=== PATIENT | male | born 1980 | race Caucasian/White ===

== ENCOUNTER 2021-11-04 21:16 | Emergency (ER) | payer OTHER ==
[~2021-11-04] VITALS: Ht 182.9 cm; Wt 115.6 kg
[2021-11-04 21:29] VITALS: BP 139/86
[2021-11-04] MEDS ORDERED: diphenhydrAMINE HCL 25 MG CAPSULE PO ONE (21:45)
[2021-11-04] MEDS ORDERED: ACETAMINOPHEN 500 MG TABLET PO ONE (21:45)
[2021-11-04] MEDS ORDERED: IBUPROFEN 600 MG TABLET. PO ONE (21:45)
--- NOTE | 2021-11-04 21:50 | PHYS DOC ---
Past History Additional Past Medical Histor: ruptured discs Past Surgical History: Other Additional Past Surgical Histo: lasix Alcohol Use: None Adult General Chief Complaint Chief Complaint: MULTIPLE COMPLAINTS HPI HPI Patient is an otherwise healthy 41-year-old male who presents with a chief complaint of about 1 day of chills, body aches, fever at home of 100.4, nasal congestion and intermittent cough. States he took some DayQuil earlier this morning but that it. Denies any known ill contacts. Denies recent traumas, travels, rash. States he is eating and drinking normally for him. States he is making urine and stool normally for him with no blood in either. Review of Systems Review of Systems Review of systems otherwise unremarkable except noted in HPI Allergies Allergies Allergies Coded Allergies Type Severity Reaction Last Updated Verified Sulfa (Sulfonamide Antibiotics) Allergy Unknown 11/04/21 Yes Physical Exam Physical Exam Constitutional: Well developed, well nourished, no acute distress, non-toxic appearance. [] HENT: Normocephalic, atraumatic, bilateral external ears normal, tympanic membranes normal, oropharynx moist, no posterior oropharyngeal erythema, no oral exudates, nose normal. [] Eyes: conjunctiva normal, no discharge. [] Neck: Normal range of motion, no tenderness, supple, no stridor. [] Cardiovascular:Heart rate regular rhythm, no murmur [] Lungs & Thorax: Bilateral breath sounds clear to auscultation [] Skin: Warm, dry, no erythema, no rash. [] Extremities: No tenderness, no cyanosis, no clubbing, ROM intact, no edema. [] Neurologic: Alert and oriented X 3, normal motor function, normal sensory function, no focal deficits noted. [] Psychologic: Affect normal, judgement normal, mood normal. [] Current Patient Data Vital Signs Vital Signs Date Time Temp Pulse Resp B/P (MAP) Pulse Ox O2 Delivery O2 Flow Rate FiO2 11/04/21 21:29 98.7 95 18 139/86 (103) 96 Room Air EKG EKG [] Radiology/Procedures Radiology/Procedures [] Heart Score C/O Chest Pain: No Risk Factors: Risk Factors: DM, Current or recent (<one month) smoker, HTN, HLP, family history of CAD, obesity. Risk Scores: Risk Factors: DM, Current or recent (<one month) smoker, HTN, HLP, family history of CAD, obesity. Course & Med Decision Making Course & Med Decision Making Patient is a 41-year-old male who presents with a chief complaint of cold/flu/COVID symptoms Vital signs not concerning. Physical exam noted above. Given medicines for symptom control Covid/flu pending. Chest x-ray nonconcerning. Discussed symptom management at home Given work note at patient's request. Advised to follow-up on Monday with primary care physician. Gave return precautions to the ED. Patient grateful, verbalized understanding and agreed with plan of discharge [] Dragon Disclaimer Dragon Disclaimer This electronic medical record was generated, in whole or in part, using a voice recognition dictation system. Departure Departure: Impression: Primary Impression: Viral syndrome Disposition: HOME / SELF CARE / HOMELESS Condition: STABLE Referrals: PCP,UNKNOWN (PCP) EMMETT DALAL MD Patient Instructions: Viral Syndrome Additional Instructions: Thank you for coming into the emergency department tonight and allowing us to take care of you. Please read all the attached information carefully to go over things we discussed. Please begin a Tylenol, ibuprofen and Benadryl regimen at home as needed. Please follow-up with your primary care physician on Monday to update on your ED visit and set up a follow-up. Your Covid/flu swab should result later this evening and you will be called with the results. Please come back with new or concerning symptoms as discussed. You are given a work note. RYAN LAFLEUR MD Nov 04, 2021 21:50
[2021-11-04] MEDS ORDERED: guaiFENesin/CODEINE 100mg/10mg 5 ML LIQUID PO PRN (22:00)
--- NOTE | 2021-11-04 22:44 | RAD ---
Exam: Chest one view INDICATION: Cough, fever TECHNIQUE: Frontal view of the chest Comparisons: None FINDINGS: The cardiomediastinal silhouette and pulmonary vessels are within normal limits. The lung and pleural spaces are clear. IMPRESSION: No acute cardiopulmonary process. Electronically signed by: Tamra Ramos MD (11/04/2021 10:42 PM) JUNAID
== END 2021-11-04 22:24 | disposition home or self-care (01) ==
LOC: ER 21:16
DX: B34.9 Viral infection, unspecified (principal); Z20.822 Contact with and (suspected) exposure to COVID-19; Z88.2 Allergy status to sulfonamides
CPT/HCPCS: 71045; 87426; 99284; Q0163

== ENCOUNTER 2021-11-15 14:43 | Emergency (ER) | payer OTHER ==
[~2021-11-15] VITALS: Ht 182.9 cm; Wt 113.8 kg
[2021-11-15] MEDS ORDERED: IBUPROFEN 600 MG TABLET. PO ONE (15:15)
[2021-11-15] MEDS ORDERED: AMOX1TAB61 PO (15:50)
--- NOTE | 2021-11-15 15:51 | PHYS DOC ---
Past History Additional Past Medical Histor: ruptured discs (CAITLIN SELBY APRN) Past Surgical History: No Surgical History Additional Past Surgical Histo: lasix (CAITLIN SELBY APRN) Alcohol Use: None (CAITLIN SELBY APRN) General Adult EDM: Chief Complaint: SORE THROAT HPI: HPI: Patient is a 41-year-old male who presents with sore throat, cough, drainage. Patient states he was seen here 1 week ago with similar symptoms. Patient reports his symptoms had improved and then have returned again. Patient states that his son had the same symptoms a week ago. Unknown fevers. No shortness of breath, chest pain, nausea/vomiting/diarrhea. Patient is not vaccinated. Denies tobacco or drug use. No other medical history. (CAITLIN SELBY APRN) Review of Systems: Review of Systems: ROS At least 10 ROS systems have been reviewed and are negative except as documented in the HPI. General: Negative except as outlined in HPI above. Skin: Negative except as outlined in HPI above. HEENT: Negative except as outlined in HPI above. Neck: Negative except as outlined in HPI above. Respiratory: Negative except as outlined in HPI above.. Cardiovascular: Negative except as outlined in HPI above. Abdomen: Negative except as outlined in HPI above. : Negative except as outlined in HPI above. Back/MSK: Negative except as outlined in HPI above. Neuro: Negative except as outlined in HPI above. Psych: Negative except as outlined in HPI above. (CAITLIN SELBY APRN) Current Medications: Current Meds: Current Medications Medications (Trade) Dose Ordered Sig/Cricket Start Time Stop Time Status Last Admin Dose Admin Ibuprofen (Motrin) 600 mg 1X ONCE 11/15/21 15:15 11/15/21 15:16 DC 11/15/21 15:18 600 MG (CAITLIN SELBY APRN) Allergies: Allergies: Allergies Coded Allergies Type Severity Reaction Last Updated Verified Sulfa (Sulfonamide Antibiotics) Allergy Unknown 11/04/21 Yes (CAITLIN SELBY APRN) Physical Exam: PE: Constitutional: Well developed, well nourished, no acute distress, non-toxic appearance. [] HENT: bilateral external ears normal, oropharynx moist, oropharynx red and irritated, no oral exudates, nose normal. [] Eyes: PERRLA,conjunctiva normal, no discharge. [] Neck: Normal range of motion, no tenderness, supple, no stridor. [] Cardiovascular:Heart rate regular rhythm, no murmur [] Lungs & Thorax: Bilateral breath sounds clear to auscultation, no wheezing Abdomen: Bowel sounds normal, soft, no tenderness, no masses, no pulsatile masses. [] Skin: Warm, dry, no erythema, no rash. [] Back: No tenderness, no CVA tenderness. [] Extremities: No tenderness, no cyanosis, no clubbing, ROM intact, no edema. [] Neurologic: Alert and oriented X 3, normal motor function, normal sensory function, no focal deficits noted. [] Psychologic: Affect normal, judgement normal, mood normal. [] (CAITLIN SELBY APRN) Current Patient Data: Vital Signs: Vital Signs Date Time Temp Pulse Resp B/P (MAP) Pulse Ox O2 Delivery O2 Flow Rate FiO2 11/15/21 14:55 98.3 95 20 140/82 (101) 95 Room Air (CAITLIN SELBY APRN) EKG: EKG: [] (CAITLIN SELBY APRN) Radiology/Procedures: Radiology/Procedures: [] (CAITLIN SELBY APRN) Heart Score: C/O Chest Pain: No Risk Factors: Risk Factors: DM, Current or recent (<one month) smoker, HTN, HLP, family history of CAD, obesity. Risk Scores: Score 0 - 3: 2.5% MACE over next 6 weeks - Discharge Home Score 4 - 6: 20.3% MACE over next 6 weeks - Admit for Clinical Observation Score 7 - 10: 72.7% MACE over next 6 weeks - Early Invasive Strategies (CAITLIN SELBY APRN) Course & Med Decision Making: Course & Med Decision Making Pertinent Labs and Imaging studies reviewed. (See chart for details) [] 41-year-old male presents with sore throat, cough and drainage. Patient had a chest x-ray and COVID test 1 week ago and both were negative. Patient had a repeat, rapid COVID done this morning which was also negative. Work-up in ER consisted of rapid strep. Patient given ibuprofen for pain. Rapid strep was negative. Patient started on Augmentin due to symptoms lasting longer than 2 weeks. Patient was likely has a URI and sinus infection. Discussed ibuprofen at home for fever, pain. Chloraseptic for sore throat. Gargle with warm salt water. (CAITLIN SELBY APRN) Dragon Disclaimer: Dragon Disclaimer: This electronic medical record was generated, in whole or in part, using a voice recognition dictation system. (CAITLIN SELBY APRN) Departure Departure: Impression: Primary Impression: Sore throat Additional Impression: Cough Disposition: 01 HOME / SELF CARE / HOMELESS Condition: STABLE Referrals: FRED CHAO (PCP) Patient Instructions: Sore Throat, [id number] Additional Instructions: You are seen in the emergency room for sore throat, cough. You were tested for strep throat which was negative. He had a rapid COVID done this morning which was also negative. I am sending you home with a prescription for Augmentin. Please return to emergency room if worsening symptoms or concerns. Otherwise follow-up with your PCP if symptoms have not improved. EMERGENCY DEPARTMENT GENERAL DISCHARGE INSTRUCTIONS Thank you for coming to [facility] (ED) today and trusting us with you care. We trust that you had a positivie experience in our Emergency Department. If you wish to speak to the department management, you may call the director at [phone]. YOUR FOLLOW UP INSTRUCTIONS ARE FOLLOWS: 1. Do you have a private Doctor? If you do not have a private doctor, please ask for a resource list of physicians or clinics that may be able to assist you with follow up care. 2. The Emergency Physician has interpreted your x-rays. The X-Ray specialist will also review them. If there is a change in the findings, you will be notified in 48 hours when at all possible. 3. A lab test or culture has been done, your results will be reviewed and you will be notified if you need a change in treatment. ADDITIONAL INSTRUCTIONS AND INFORMATION: 1. Your care today has been supervised by a physician who is specially trained in emergency care. Many problems require more than one evaluation for a complete diagnosis and treatment. We recommend that you schedule your follow up appointment as recommended to ensure complete treatment of you illness or injury. If you are unable to obtain follow up care and continue to have a problem, or if your condition worsens, we recommend that you return to the ED. 2. We are not able to safely determine your condition over the phone nor are we able to give sound medical advice over the phone. For these safety reasons, if you call for medical advice we will ask you to come to the ED for further evaluation. 3. If you have any questions regarding these discharge instructions please call the ED at [phone]. SAFETY INFORMATION: In the interest of safety, wellness, and injury prevention; we encourage you to wear your sealbelt, if you smoke; quite smoking, and we encourage family to use a protective helmet for bicycling and other sporting events that present an increased risk for head injury. IF YOUR SYMPTOMS WORSEN OR NEW SYMPTOMS DEVELOP, OR YOU HAVE CONCERNS ABOUT YOUR CONDITION; OR IF YOUR CONDITION WORSENS WHILE YOU ARE WAITING FOR YOUR FOLLOW UP APPOINTMENT; EITHER CONTACT YOUR PRIMARY CARE DOCTOR, THE PHYSICIAN WHOSE NAME AND NUMBER YOU WERE GIVEN, OR RETURN TO THE ED IMMEDIATELY. Scripts Amoxicillin/Potassium Clav (AUGMENTIN 875-125 TABLET) 1 Each Tablet 1 TAB PO BID for SINUSITIS for 10 Days, #20 TAB 0 Refills Prov: CAITLIN SELBY APRN 11/15/21 Attending Signature Attending Signature I have reviewed the PA/RAPID TRANSIT OPERATOR's note and plan of care. I was available for consultation as needed during the patient's visit in the emergency department. I agree with the clinical impression, plan, and disposition. (KOMAL JADE DO) CAITLIN SELBY APRN Nov 15, 2021 15:51 KOMAL JADE DO Nov 15, 2021 16:35
[2021-11-15 16:05] VITALS: BP 128/86
== END 2021-11-15 16:05 | disposition home or self-care (01) ==
LOC: ER 14:43
DX: J02.9 Acute pharyngitis, unspecified (principal); R05.9 Cough, unspecified; Z88.2 Allergy status to sulfonamides
CPT/HCPCS: 87070; 87880; 99283